=== PATIENT | female | born 1990 | race Caucasian/White ===

== ENCOUNTER 2019-07-10 15:33 | Emergency (ER) | payer MEDICAID ==
[~2019-07-10] VITALS: Ht 144.8 cm; Wt 81.8 kg
[~2019-07-10 15:33] MED LIST: CEPH-443 PO; MUPI22OI2 TOP
[2019-07-10 15:39] VITALS: BP 105/56; PULSE 125; RESP 20; Ht 144.8 cm; Wt 81.8 kg
== END 2019-07-10 16:55 | disposition home or self-care (01) ==
LOC: E/R 15:33
DX: S30.861A Insect bite (nonvenomous) of abdominal wall, initial encounter (principal); L08.9 Local infection of the skin and subcutaneous tissue, unspecified; W57.XXXA Bitten or stung by nonvenomous insect and other nonvenomous arthropods, initial encounter; Y92.9 Unspecified place or not applicable
CPT/HCPCS: 99283